=== PATIENT | male | born 1950 | race Caucasian/White ===

== ENCOUNTER 2017-08-15 22:03 | Emergency (ER) | payer MEDICARE, MEDICAID, SELFPAY ==
[2017-08-15 22:06] VITALS: BP 133/92; PULSE 113; RESP 17; TEMP 36.4; O2SAT 85; BMI 31.6
[2017-08-15] MEDS: LORazepam 2 MG/ML Syringe 1 MG IV (22:12)
--- NOTE | 2017-08-15 22:18 | NURSING ---
PATIENT CAME IN NON RESPONSIVE AND POST ICTAL. PATIENT O2 SATS IN THE 80'S. PATIENT HAD JAW CLAMPED TIGHTLY AND BLOOD NOTED FROM HIS MOUTH FROM BITING HIS LIP/TONGUE. NASAL TRUMPET WAS ORDERED BY DR. SORENSON AND WAS INSERTED BY [employer]. PATIENT IS ON A NON REBREATHER MASK AN SATS HAVE INCREASED TO 100%. HE IS CURRENTLY SNORING LOUDLY.
[2017-08-15 22:20] VITALS: BP 129/74; PULSE 100; RESP 21; O2SAT 100
--- NOTE | 2017-08-15 22:20 | CT_ITS ---
STUDY: CT BRAIN WITHOUT CONTRAST REASON FOR EXAM: Male, 66 years old. Seizure RADIATION DOSAGE (If Supplied By Facility): CTDIvol = ( 44.99 ) mGy, DLP = ( 1727.20 ) mGycm TECHNIQUE: Transaxial CT imaging of the brain was performed without administration of intravenous contrast material. Sagittal and coronal images are reformatted. Individualized dose optimization techniques were used for this CT. COMPARISON: 01/27/2014. FINDINGS: Normal soft tissue structures. Normal calvarium. There is mild cerebral atrophy with widening of the extra-axial spaces and ventricular dilatation. There are areas of decreased attenuation within the white matter tracts of the supratentorial brain, consistent with microvascular disease changes. Normal basal ganglia and thalami. Normal brainstem. Normal cerebellum. There is no intracranial hemorrhage. There are no findings of an acute ischemic infarction. Normal visualized paranasal sinuses. CT/Brain/Head without Contrast IMPRESSION: Chronic involutional changes of the brain. No acute intracranial process. Electronically Signed: Juni Farah DO at 0:04 EST , Service support ,
--- NOTE | 2017-08-15 22:20 | RAD_ITS ---
STUDY: X-RAY CHEST REASON FOR EXAM: Male, 66 years old. Seizure TECHNIQUE: Single AP portable view of the chest. COMPARISON: 03/11/2017. FINDINGS: The lung apices are obscured by the patient's chin. The lungs are clear and expanded. Chronic interstitial changes. There is no demonstrated pleural abnormality. Normal size heart. Normal mediastinum and danny. Normal visualized pulmonary arteries. Normal visualized aortic arch and descending thoracic aorta. Normal visualized thoracic spine. There is degenerative osteoarthritis of the bilateral shoulders. There is no demonstrated abnormality of the visualized soft tissue structures of the upper abdomen. RAD/Chest 1 View (Portable) IMPRESSION: Chronic interstitial changes. No infiltrate. Electronically Signed: Juni Farah DO at 23:08 EST , Service support ,
--- NOTE | 2017-08-15 22:21 | EKG12_ITS ---
Test Reason : Blood Pressure : / mmHG Vent. Rate : 105 BPM Atrial Rate : 105 BPM P-R Int : 180 ms QRS Dur : 100 ms QT Int : 338 ms P-R-T Axes : 042 021 005 degrees QTc Int : 446 ms Poor data quality, interpretation may be adversely affected Sinus tachycardia Otherwise normal ECG Confirmed by ANGE ALBRECHT, MASOOD ([id number]), assistant production editor ABIMAEL JENSEN ([id number]) on 08/18/2017 3:37:11 PM Referred By: YAS Confirmed By:MASOOD CASSIDY MD
--- NOTE | 2017-08-15 22:24 | ED.RN ---
NO OLD EKG'S IN MUSE
[2017-08-15 22:36] LABS: Bedside Glucose 185 mg/dL (70-110)
[2017-08-15] MEDS: 0.9% Normal Saline 1,000 ML 1000 ML IV (22:38)
[2017-08-15 22:44] VITALS: BP 139/87; PULSE 106; RESP 20; TEMP 36.2; O2SAT 100
[2017-08-15 22:45] LABS: Bacteria 0 SEEN /hpf (None Seen); Mucous, Urine 0 SEEN /hpf (<or=2+); White Blood Cells 0 SEEN /hpf (0-5)
[2017-08-15 22:48] LABS: Absolute Lymphocyte Count 1.51 X10^3/ul (0.83-4.51); Absolute Neutrophil Count 5.4 X10^3/uL (2.0-7.7); Basophil# 0.02 X10^3/uL; Basophil% 0.3 % (0-1); Eosinophil# 0.14 X10^3/uL; Eosinophils% 1.8 % (0-5); Hematocrit 41.1 % (40-54); Hemoglobin 13.7 g/dl (13.0-16.5); Lymphocyte # 1.51 X10^3/ul (4.0); Lymphocyte % 19.1 % (19-41); Mean Corp Hgb Conc 33.3 g/gl (32-36); Mean Corpuscular Hgb 31.1 pg (27.0-32.0); Mean Corpuscular Volume 93.2 fL (80-94); Mean Platelet Vol. 8.5 fl (6.2-12.0); Monocyte# 0.77 X10^3/uL; Monocyte% 9.8 % (0-10); Neutrophil # 5.42 X10^3/uL (2.7-7.7); Neutrophil % 68.6 % (47-70); POSITIVE COUNT NO; POSITIVE DIFFERENTIAL NO; POSITIVE MORPHOLOGY NO; Platelet Count 263 K/mm3 (150-450); RBC Distribution Width CV 11.8 % (11.6-14.6); RBC Distribution Width SD 39.9 fl (35.1-43.9); Red Blood Count 4.41 M/mm3 (4.6-6.2); White Blood Count 7.9 K/mm3 (4.4-11.0)
[2017-08-15 22:48] LABS: Color, Urine Yellow (Yellow); Glucose, Dipstick 250 mg/dl (Normal); Ketone-Dipstick Negative (Negative); Leukocyte Esterase-Dipstick Negative /ul (Negative); Nitrite-Dipstick Negative (Negative); Occult Blood-Urine 10 /ul (Negative); Protein-Dipstick 100 mg/dl (Negative); Specific Gravity, Urine 1.015 (1.002-1.030); Urine Bilirubin Dipstick Negative (Negative); Urine Clarity Sl. Cloudy (Clear); Urine Urobilinogen Normal (Normal); Urine pH 6.5 (5.0 - 8.0)
[2017-08-15 22:55] LABS: International Normalized Ratio 1.1; Prothrombin Time (Protime)PT. 13.5 SECONDS (11.7-14.9)
[2017-08-15 22:56] LABS: Partial Thromboplast Time 28.9 Seconds (24.1-36.2)
[2017-08-15 22:56] LABS: Base Excess 5 mmol/L (-2 to +2); Bicarbonate 31.4 mmol/L (22-26); Blood Gas Specimen Type ART; O2 Delivery Device NRB Mask; PO2 196 mmHG (75-100); SITE R Radial; SO2 100 % (95-99); Time Given 2242; Total Carbon Dioxide 33 mmol/L; pCO2 66.2 mmHg (35-45); pH 7.28 (7.35-7.45)
[2017-08-15 22:57] LABS: Red Blood Cells-Urine 0-5 SEEN /hpf (0-5); Squamous Epithelial Cells - UA 0-5 SEEN /hpf (0-5)
--- NOTE | 2017-08-15 22:58 | ED.DCSUM_ITS ---
- ER Visit Summary Date of Service: 08/15/17 Chief Complaint: Altered mental status after a seizure History of Present Illness: The patient is a 66 M with history of seizure disorder and deafness who presents from a custodial after a prolonged seizure without regaining of consciousness. EMS was called after patient had seized for approximately 1 hour without regaining consciousness. It was thought he had stopped seizing, but then started again with involvement of his face. EMS started an IV and gave 2.5 mg of Versed IV. Blood sugar checked by them was within normal limits. Patient medication review does show seizure medications of Vimpat and carbamazepine. No known history of trauma. No known history of recent illness. History limited secondary by patient mental status changes. Physical Examination: Vital signs: afebrile, normotensive, tachycardic, hypoxic on room air, 99% on nonrebreather. General: well nourished, well developed, obese, responsive only to noxious stimulation, eyes closed, snoring respirations, blood noted on the mouth Skin: warm, dry, no rash, no pallor HEENT: normocephalic and atraumatic; PERRL, no movement of eyes with rotation of the head laterally, moist mucous membranes jaw clenched, lip bite noted on the lower left lip Cardiovascular: Tachycardic rate and rhythm without murmurs, no peripheral edema , 2+ pulses all distal extremities Respiratory: Mild increased work of breathing improved with jaw thrust and nasal trumpet, lungs are diminished, abdominal breathing, no rales, rhonchi or wheezing appreciated Abdominal: Abdomen is soft, nontender with normoactive bowel sounds, no masses MSK: Flaccid extremities except for left clenched fist, no deformities or injuries noted Neuro: Obtunded, responsive to noxious stimuli. No facial droop, negative Babinski Test Results: Abnormal Lab Results 08/15/17 08/15/17 08/15/17 22:28 22:32 22:32 WBC 7.9 RBC 4.41 L Hgb 13.7 Hct 41.1 MCV 93.2 MCH 31.1 MCHC 33.3 RDW 11.8 RDW Differential 39.9 Plt Count 263 MPV 8.5 Immature Gran % (Auto) 0.400 Neut % (Auto) 68.6 Lymph % (Auto) 19.1 [place] % (Auto) 9.8 Eos % (Auto) 1.8 Baso % (Auto) 0.3 Absolute Neuts (auto) 5.4 Absolute Lymphs (auto) 1.51 Total Counted Not Reportable PT 13.5 INR 1.1 APTT 28.9 Specimen Type Sample Site pH Bicarbonate Actual POC Total CO2 Base Excess O2 Saturation ABG pCO2 ABG pO2 [place] Test O2 Delivery Device Liter Flow Blood Gas Notified Whom Blood Gas Notified Time Sodium Potassium Chloride Carbon Dioxide Anion Gap BUN Creatinine Estim Creat Clear Calc Est GFR (MDRD) Af Amer Est GFR (MDRD) Non-Af BUN/Creatinine Ratio Glucose Lactic Acid Calcium Total Bilirubin AST ALT Alkaline Phosphatase Troponin I Total Protein Albumin Globulin Albumin/Globulin Ratio Lipase Urine Color Urine Clarity Urine pH Ur Specific [place] Urine Protein Urine Glucose (UA) Urine Ketones Urine Occult Blood Urine Nitrite Urine Bilirubin Urine Urobilinogen Ur Leukocyte Esterase Urine RBC Urine WBC Ur Squamous Epith Cells Urine Bacteria Urine Mucus Urine Opiates Screen Urine Methadone Screen Ur Barbiturates Screen Carbamazepine Ur Phencyclidine Scrn Ur Amphetamines Screen U Methamphetamin-MDMA U Benzodiazepines Scrn Urine Cocaine Screen U Cannabinoids Screen Ur Drug Screen Comment Ethyl Alcohol POC Glucose 185 H 08/15/17 08/15/17 08/15/17 22:32 22:32 22:32 WBC RBC Hgb Hct MCV MCH MCHC RDW RDW Differential Plt Count MPV Immature Gran % (Auto) Neut % (Auto) Lymph % (Auto) [place] % (Auto) Eos % (Auto) Baso % (Auto) Absolute Neuts (auto) Absolute Lymphs (auto) Total Counted PT INR APTT Specimen Type Sample Site pH Bicarbonate Actual POC Total CO2 Base Excess O2 Saturation ABG pCO2 ABG pO2 [place] Test O2 Delivery Device Liter Flow Blood Gas Notified Whom Blood Gas Notified Time Sodium 132 L Potassium 3.4 L Chloride 94 L Carbon Dioxide 29.0 Anion Gap 9 BUN 14 Creatinine 0.70 Estim Creat Clear Calc 70.70 Est GFR (MDRD) Af Amer 143 Est GFR (MDRD) Non-Af 118 BUN/Creatinine Ratio 19.9 Glucose 206 H Lactic Acid 1.6 Calcium 7.6 L Total Bilirubin 0.20 AST 15 ALT 23 Alkaline Phosphatase 120 H Troponin I < 0.02 Total Protein 7.8 Albumin 3.8 Globulin 4.0 Albumin/Globulin Ratio 1.0 Lipase 119 Urine Color Urine Clarity Urine pH Ur Specific [place] Urine Protein Urine Glucose (UA) Urine Ketones Urine Occult Blood Urine Nitrite Urine Bilirubin Urine Urobilinogen Ur Leukocyte Esterase Urine RBC Urine WBC Ur Squamous Epith Cells Urine Bacteria Urine Mucus Urine Opiates Screen Urine Methadone Screen Ur Barbiturates Screen Carbamazepine Ur Phencyclidine Scrn Ur Amphetamines Screen U Methamphetamin-MDMA U Benzodiazepines Scrn Urine Cocaine Screen U Cannabinoids Screen Ur Drug Screen Comment Ethyl Alcohol < 3.0 POC Glucose 08/15/17 08/15/17 08/15/17 22:32 22:40 22:40 WBC RBC Hgb Hct MCV MCH MCHC RDW RDW Differential Plt Count MPV Immature Gran % (Auto) Neut % (Auto) Lymph % (Auto) [place] % (Auto) Eos % (Auto) Baso % (Auto) Absolute Neuts (auto) Absolute Lymphs (auto) Total Counted PT INR APTT Specimen Type Sample Site pH Bicarbonate Actual POC Total CO2 Base Excess O2 Saturation ABG pCO2 ABG pO2 [place] Test O2 Delivery Device Liter Flow Blood Gas Notified Whom Blood Gas Notified Time Sodium Potassium Chloride Carbon Dioxide Anion Gap BUN Creatinine Estim Creat Clear Calc Est GFR (MDRD) Af Amer Est GFR (MDRD) Non-Af BUN/Creatinine Ratio Glucose Lactic Acid Calcium Total Bilirubin AST ALT Alkaline Phosphatase Troponin I Total Protein Albumin Globulin Albumin/Globulin Ratio Lipase Urine Color Yellow Urine Clarity Sl. Cloudy Urine pH 6.5 Ur Specific [place] 1.015 Urine Protein 100 H Urine Glucose (UA) 250 H Urine Ketones Negative Urine Occult Blood 10 H Urine Nitrite Negative Urine Bilirubin Negative Urine Urobilinogen Normal Ur Leukocyte Esterase Negative Urine RBC 0-5 SEEN Urine WBC 0 SEEN Ur Squamous Epith Cells 0-5 SEEN Urine Bacteria 0 SEEN Urine Mucus 0 SEEN Urine Opiates Screen NEGATIVE Urine Methadone Screen NEGATIVE Ur Barbiturates Screen NEGATIVE Carbamazepine 11.4 Ur Phencyclidine Scrn NEGATIVE Ur Amphetamines Screen NEGATIVE U Methamphetamin-MDMA NEGATIVE U Benzodiazepines Scrn NEGATIVE Urine Cocaine Screen NEGATIVE U Cannabinoids Screen NEGATIVE Ur Drug Screen Comment Ethyl Alcohol POC Glucose 08/15/17 22:50 WBC RBC Hgb Hct MCV MCH MCHC RDW RDW Differential Plt Count MPV Immature Gran % (Auto) Neut % (Auto) Lymph % (Auto) [place] % (Auto) Eos % (Auto) Baso % (Auto) Absolute Neuts (auto) Absolute Lymphs (auto) Total Counted PT INR APTT Specimen Type ART Sample Site R Radial pH 7.28 L Bicarbonate Actual 31.4 H POC Total CO2 33 Base Excess 5 H O2 Saturation 100 H ABG pCO2 66.2 H ABG pO2 196 H Kenrick Test NA O2 Delivery Device NRB Mask Liter Flow 15.0 Blood Gas Notified Whom ED Blood Gas Notified Time 2241 Sodium Potassium Chloride Carbon Dioxide Anion Gap BUN Creatinine Estim Creat Clear Calc Est GFR (MDRD) Af Amer Est GFR (MDRD) Non-Af BUN/Creatinine Ratio Glucose Lactic Acid Calcium Total Bilirubin AST ALT Alkaline Phosphatase Troponin I Total Protein Albumin Globulin Albumin/Globulin Ratio Lipase Urine Color Urine Clarity Urine pH Ur Specific [place] Urine Protein Urine Glucose (UA) Urine Ketones Urine Occult Blood Urine Nitrite Urine Bilirubin Urine Urobilinogen Ur Leukocyte Esterase Urine RBC Urine WBC Ur Squamous Epith Cells Urine Bacteria Urine Mucus Urine Opiates Screen Urine Methadone Screen Ur Barbiturates Screen Carbamazepine Ur Phencyclidine Scrn Ur Amphetamines Screen U Methamphetamin-MDMA U Benzodiazepines Scrn Urine Cocaine Screen U Cannabinoids Screen Ur Drug Screen Comment Ethyl Alcohol POC Glucose Emergency Department Course and Treatment: Patient had snoring respirations upon arrival but was breathing spontaneously. Airway maneuvers were performed, with placement of a nasal trumpet and a jaw thrust, which resolved the snoring. Nonrebreather was placed. Patient had no change in his gaze with rotation of his head left or right, clenched jaw, and had stiffness in his left hand with occasional twitching, which was concerning for a continued seizure. Patient had received IV Versed by EMS. He was given an additional 1 mg of Ativan. Patient had improvement in his eye exam, relaxation of his left hand, and relaxation of his jaw after a period of observation following the Ativan. Patient did appear to now be post ictal and no longer having active seizure. Workup was performed to look for underlying medical cause that may have lowered his seizure threshold. Head CT showed no intracranial hemorrhage. No signs of infection on lab work or chest x-ray, electrolyte derangements, cardiac issues, UTI or other lying medical cause were identified on workup. Patient's carbamazepine was within normal limits. He had taken his medication per his healthcare worker who arrived during his workup. Patient maintained a patent airway and was slowly weaned off oxygen. He was observed for several hours and slept during this time. He was eventually completely weaned off oxygen and the nasal trumpet was removed, with patient maintaining good oxygen saturation and respiratory effort. Patient began waking up and interacting. He eventually completely woke up, was sitting on the edge of the bed, was able to interact with sign language with his healthcare worker, and asked to go home. The Mariano catheter was removed. Patient was back at his baseline and discharged home. Critical care time of 45 minutes for initial stabilization of actively seizing patient, airway control, frequent re-evaluations, discussion with healthcare worker at his custodial, interpretation of ABG, EKG, lab work and CT of the head. Treatment Plan: [] Disposition: [] Impression: Breakthrough seizure, history of epilepsy This note was generated with [employer] dictation software. It may contain incorrect words, spelling, and punctuation that were not noted in review of the chart prior to signing ED Disposition - Plan for ED Patient: Disposition: Home or Assisted Living Chief Complaint: Seizure Instructions: ED Seizure Recurrent Referrals: Michael Avalos MD [Primary Care Provider] - 3-5 Days Additional Instructions: You had a seizure tonight. There were no findings on your workup that would be concerning for an underlying medical cause, such as infection or electrolyte abnormalities, of your seizure other than your underlying epilepsy. Your carbamazepine level was normal. We were unable to check to see if your Vimpat levels were low. Because you had a breakthrough seizure while on your seizure medication, please follow-up with your doctor that manages your seizure medications to discuss if there are any changes that need to be made. If you have any worsening of your condition, please return to the emergency department immediately for another evaluation.
[2017-08-15 23:02] LABS: AST(SGOT) 15 U/L (15-37); Alanine Aminotransfer ALT/SGPT 23 U/L (16-61); Albumin, Serum 3.8 g/dL (3.2-5.0); Alkaline Phosphatase 120 U/L (45-117); Anion Gap 9 (5-15); BUN 14 mg/dL (7-18); BUN/Creat Ratio 19.9 RATIO (10-20); Calcium,Total 7.6 mg/dL (8.5-10.1); Chloride 94 mmol/L (98-107); EST Glomerular Filtration Rate 118 mL/min (>60); Est Glom Filt Rate - Afr Amer 143 mL/min (>60); Glucose 206 mg/dL (74-106); Lipase 119 U/L (73-393); Potassium 3.4 mmol/L (3.5-5.1); Protein, Total 7.8 g/dL (6.4-8.2); Sodium Level 132 mmol/L (136-145)
[2017-08-15 23:16] VITALS: BP 159/78; PULSE 100; RESP 17; TEMP 36.6; O2SAT 100
[2017-08-15 23:27] VITALS: O2SAT 97
[2017-08-15 23:49] LABS: Alcohol, Blood (Medical)-Serum < 3.0 mg/dL
[2017-08-15 23:52] LABS: Carbamazepine (Tegretol) 11.4 ug/mL (4.0-12.0)
[2017-08-16 00:06] LABS: Lactic Acid 1.6 mmol/L (0.4-2.0)
[2017-08-16 00:16] LABS: Amphetamine Urine VISTA NEGATIVE (<1000 ng/mL); Barbiturate Urine VISTA NEGATIVE (< 200 ng/mL); Benzodiazepine Urine VISTA NEGATIVE (< 200 ng/mL); Cocaine Urine VISTA NEGATIVE (< 300 ng/mL); Ecstacy Urine VISTA NEGATIVE (< 500 ng/mL); Methadone Urine VISTA NEGATIVE (< 300 ng/mL); PCP Urine VISTA NEGATIVE (< 25 ng/mL); THC Urine VISTA NEGATIVE (< 50 ng/mL); Vista UDS pH Range 6
[2017-08-16 00:52] VITALS: BP 124/70; PULSE 91; RESP 20; O2SAT 93
[2017-08-16 01:20] VITALS: BP 124/72; PULSE 87; RESP 18; TEMP 36.7; O2SAT 93
[2017-08-16 02:35] VITALS: BP 160/91; PULSE 98; RESP 29; O2SAT 94
--- NOTE | 2017-08-16 03:01 | ED.DEP ---
ED Disposition - Plan for ED Patient: Disposition: Home or Assisted Living Chief Complaint: Seizure Instructions: ED Seizure Recurrent Referrals: Michael Avalos MD [Primary Care Provider] - 3-5 Days Additional Instructions: You had a seizure tonight. There were no findings on your workup that would be concerning for an underlying medical cause, such as infection or electrolyte abnormalities, of your seizure other than your underlying epilepsy. Your carbamazepine level was normal. We were unable to check to see if your Vimpat levels were low. Because you had a breakthrough seizure while on your seizure medication, please follow-up with your doctor that manages your seizure medications to discuss if there are any changes that need to be made. If you have any worsening of your condition, please return to the emergency department immediately for another evaluation.
[2017-08-16 03:11] VITALS: BP 148/82; PULSE 101; RESP 20; TEMP 37.1; O2SAT 94
--- NOTE | 2017-08-16 03:13 | NURSING ---
PATIENT WAS ALERT AND ORIENTED TO SELF AND SIGNING TO [employer] SAL[employer] MANAGER HE WANTED TO GO HOME. DR. SORENSON MADE AWARE AND SAID OK FOR THIS NURSE TO D/C HIS CATHETER. CATHETER REMOVED. HE WAS ABLE TO STAND AND AMBULATE WITHOUT ASSISTANCE PRIOR TO DISCHARGE.
== END 2017-08-16 03:15 | disposition home or self-care (01) ==
PROVIDERS: Emergency Provider Emergency Medicine; Family Provider Family Medicine; PCP Family Medicine
DX: G40.909 Epilepsy, unspecified, not intractable, without status epilepticus (principal); H91.90 Unspecified hearing loss, unspecified ear; E66.9 Obesity, unspecified; Z79.82 Long term (current) use of aspirin; Z79.899 Other long term (current) drug therapy
CPT/HCPCS: 36600; 51702; 70450; 71045; 80053; 80156; 80307; 80320; 81001; 82803; 82962; 83605; 83690; 84484; 85025; 85610; 85730; 87040; 87086; 93005; 96361; 96374; 99285; J7030; A4216; G0480

== ENCOUNTER → 2017-10-28 08:54 | Outpatient (CLI) | payer MEDICARE, MEDICAID, SELFPAY ==
--- NOTE | 2017-10-28 09:01 | RAD_ITS ---
STUDY: X-RAY CHEST REASON FOR EXAM: Male, 66 years old. Wheezing. Cough. TECHNIQUE: PA and lateral views of the chest. COMPARISON: August 15, 2017. FINDINGS: The lungs are hypoexpanded. There are chronic interstitial changes. There is no new infiltrate or mass. There is no demonstrated pleural abnormality. The heart remains borderline enlarged. Normal mediastinum and danny. Normal visualized pulmonary arteries. There is atherosclerotic calcification of the aortic arch with tortuosity. There are diffuse degenerative changes of the visualized thoracic spine. There is degenerative osteoarthritis of the bilateral shoulders. There is no demonstrated abnormality of the visualized soft tissue structures of the upper abdomen. RAD/Chest PA and Lateral IMPRESSION: No acute cardiopulmonary disease or interval change. Electronically Signed: Charles Beltrán DO at 16:47 EDT Tel [phone], Service support ,
== END ==
PROVIDERS: Family Provider Family Medicine; PCP Family Medicine; Visit Provider Nurse Practitioner Acute Care
DX: J45.909 Unspecified asthma, uncomplicated (principal)
CPT/HCPCS: 71046

== ENCOUNTER → 2019-02-18 15:04 | Outpatient (CLI) | payer MEDICARE, MEDICAID, SELFPAY ==
[2018-10-19 07:41] VITALS: BMI 34.9
--- NOTE | 2019-02-18 15:15 | RAD_ITS ---
STUDY: X-RAY CHEST REASON FOR EXAM: Male, 68 years old. Shortness of breath, wheezing TECHNIQUE: PA and 2 lateral views of the chest. COMPARISON: 10/28/2017 FINDINGS: There are interstitial fibrotic changes of the lungs. There is no demonstrated pleural abnormality. Normal size heart. Normal mediastinum and danny. Normal visualized pulmonary arteries. Normal visualized aortic arch and descending thoracic aorta. There are diffuse degenerative changes of the visualized thoracic spine. There is degenerative osteoarthritis of the bilateral shoulders. There is no demonstrated abnormality of the visualized soft tissue structures of the upper abdomen. RAD/Chest PA and Lateral IMPRESSION: Degenerative changes, as described above. No demonstrated acute cardiopulmonary process. Electronically Signed: Yefri Grace MD at 15:35 EDT , Service support ,
[2019-02-18 16:21] LABS: Absolute Neutrophil Count 6.9 X10^3/uL (2.0-7.7); Basophil# 0.05 X10^3/uL; Basophil% 0.5 % (0-1); Eosinophils% 1.1 % (0-5); Hematocrit 38.6 % (40-54); Hemoglobin 13.2 g/dL (13.0-16.5); Lymphocyte % 12.8 % (19-41); Mean Corp Hgb Conc 34.2 g/dL (32-36); Mean Corpuscular Hgb 31.5 pg (27.0-32.0); Mean Corpuscular Volume 92.1 fL (80-94); Mean Platelet Vol. 8.7 fl (6.2-12.0); Monocyte# 1.03 X10^3/uL; NRBC Flagged by Analyzer 0 % (0-5); Neutrophil # 6.92 X10^3/uL (2.7-7.7); Neutrophil % 74.2 % (47-70); Platelet Count 282 K/mm3 (150-450); RBC Distribution Width CV 11.8 % (11.6-14.6); RBC Distribution Width SD 39.8 fl (35.1-43.9); Red Blood Count 4.19 M/mm3 (4.6-6.2); White Blood Count 9.3 K/mm3 (4.4-11.0)
[2019-02-18 16:34] LABS: AST(SGOT) 14 U/L (15-37); Alanine Aminotransfer ALT/SGPT 20 U/L (16-61); Albumin, Serum 3.7 g/dL (3.2-5.0); Alkaline Phosphatase 159 U/L (45-117); Anion Gap 9 (5-15); BUN 12 mg/dL (7-18); BUN/Creat Ratio 13.8 RATIO (10-20); Bilirubin, Direct 0.12 mg/dL (0.00-0.30); Calcium,Total 8.6 mg/dL (8.5-10.1); Chloride 96 mmol/L (98-107); Creatinine, Serum 0.87 mg/dL (0.70-1.30); EST Glomerular Filtration Rate 92 mL/min (>60); Est Glom Filt Rate - Afr Amer 111 mL/min (>60); Globulin 3.6 g/dL (2.2-4.2); Glucose 130 mg/dL (74-106); Potassium 3.7 mmol/L (3.5-5.1); Protein, Total 7.3 g/dL (6.4-8.2); Sodium Level 134 mmol/L (136-145)
[2019-02-18 17:54] LABS: Carbamazepine (Tegretol) 12.1 ug/mL (4.0-12.0)
== END ==
PROVIDERS: Family Provider Family Medicine; PCP Family Medicine; Referring Provider Nurse Practitioner Family; Visit Provider Nurse Practitioner Family
DX: R56.9 Unspecified convulsions (principal); R06.02 Shortness of breath
CPT/HCPCS: 36415; 71046; 80053; 80156; 80177; 82248; 85025

== ENCOUNTER 2020-08-27 10:06 | Emergency (ER) | payer MEDICARE, MEDICAID, SELFPAY ==
[2020-08-27 09:18] VITALS: BMI 32.3
[2020-08-27 10:07] VITALS: BP 142/90; PULSE 97; RESP 20; TEMP 36.1; O2SAT 96; BMI 36.8
--- NOTE | 2020-08-27 10:17 | RAD_ITS ---
STUDY: X-RAY CHEST REASON FOR EXAM: Male, 69 years old. COUGH, GENERAL ILLNESS TECHNIQUE: Single AP portable view of the chest. COMPARISON: 02/18/2019 FINDINGS: Cardiac monitoring leads are present. Low lung volumes are noted with mild basilar hypoventilatory changes. There is no demonstrated pleural abnormality. Normal size heart. Normal mediastinum and danny. Normal visualized pulmonary arteries. Normal visualized aortic arch and descending thoracic aorta. Normal visualized thoracic spine. There appears osteoarthritic change of the left glenohumeral joint. There is no demonstrated abnormality of the visualized soft tissue structures of the upper abdomen. RAD/Chest 1 View (Portable) IMPRESSION: Low lung volumes with mild nonspecific basilar hypoventilatory change. Electronically Signed: Nayana Townsend MD at 10:55 EST , Service support ,
--- NOTE | 2020-08-27 10:17 | CT_ITS ---
STUDY: CT BRAIN WITHOUT CONTRAST REASON FOR EXAM: Male, 69 years old. UNSTEADY GAIT, CHANGE IN MENTAL STATUS, MRDD, HTN, SZ DISORDER RADIATION DOSAGE (If Supplied By Facility): CTDIvol = ( 44.99 ) mGy, DLP = ( 863.6 ) mGycm TECHNIQUE: Transaxial CT imaging of the brain was performed without administration of intravenous contrast material. Individualized dose optimization techniques were used for this CT. COMPARISON: 01/27/[address] FINDINGS: Normal soft tissue structures. Normal calvarium. There is mild brain volume loss. 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 There are areas of decreased attenuation within the white matter tracts of the supratentorial brain, consistent with moderate microvascular disease changes. Normal basal ganglia and thalami. Normal brainstem. Normal cerebellum. There is mild prominence of the ventricles particularly the temporal horns but I believe this is secondary to the degree of volume loss in the appearance is unchanged from 2013. There is no intracranial hemorrhage. There are no findings of an acute ischemic infarction. Normal visualized paranasal sinuses. CT/Brain/Head without Contrast IMPRESSION: Chronic involutional changes of the brain. No significant interval change in the appearance of the brain when compared to 01/27/2014. Electronically Signed: Nayana Townsend MD at 11:01 EST , Service support ,
--- NOTE | 2020-08-27 10:17 | EKG12_ITS ---
Test Reason : Blood Pressure : / mmHG Vent. Rate : 101 BPM Atrial Rate : 101 BPM P-R Int : 158 ms QRS Dur : 098 ms QT Int : 340 ms P-R-T Axes : 038 029 039 degrees QTc Int : 440 ms Sinus tachycardia Otherwise normal ECG Confirmed by SINDY ALBRECHT, GRACE ([id number]), news editor DANILO FERNANDES ([id number]) on 08/31/2020 1:28:42 PM Referred By: Confirmed By:GRACE CALLAHAN MD
--- NOTE | 2020-08-27 10:33 | ED.VIS.GEN ---
History of Present Illness Chief Complaint: General Illness Informant: - - Staff from detention Limited by: - - Deaf mute with cognitive impairment. He is able to read lips. Onset: Yesterday Context: Sudden Onset Timing: Continuous Quality: Trouble with balance, complaint of headache and cough Location: Resides at detention Current Severity: - - Unable to determine Maximum Severity: - - Unable to determine Worsened by: Unable to determine Relieved by: Apparently nothing and reason he was brought to the ER for evaluation Associated Symptoms: Limited due to 2 reasons documented earlier in the record Narrative: Patient is 69-year-old male who is a deaf mute who is able to answer yes/no questions only. Based on history he complains of a global headache, has a cough and shortness of breath. Patient had trouble with balance according to detention staff. He does have history of seizure disorder. - Past Medical History (1) Deaf mutism, congenital Status: Acute (2) Asthma Status: Chronic (3) Benign hypertension Status: Chronic (4) Mental retardation Status: Chronic (5) Seizure disorder Status: Chronic Past Medical History - Allergies and Home Meds Allergies/Adverse Reactions: Allergies No Known Allergies Allergy (Verified 08/27/20 09:30) Primary Care Physician: Michael Avalos MD [Primary Care Provider] - Prior records reviewed: Yes Surgical History: noncontributory Lives: - - assisted Smoking Status: Never smoker Alcohol: None Drugs: None Review of Systems ROS: Unable to Obtain General: Denies: Fever Respiratory: Reports: Dyspnea, Cough Neurological: Reports: Headache, - - Problems with balance according to staff Physical Exam Vital Signs/Narrative: Vital Signs Temp Pulse Resp BP Pulse Ox 08/27/20 10:07 97.0 F L 97 20 H 142/90 H 96 Inital Vital Signs reviewed: Yes General: Well nourished, Well developed, Obese, No Acute Distress, - - Patient becomes agitated when he attempts to explain his symptoms. Head: Normocephalic, Atraumatic - Current trauma. Scars noted and concern for prior craniotomy. Eyes: Perrl, EOMI, - - No nystagmus. There is no subconjunctival hemorrhage.. Negative for: Pale conjunctiva, Scleral icterus ENT: No rhinorrhea, TM's clear. Negative for: Dry mucous membranes, Nasal congestion, Sinus tenderness Neck: Supple, Nontender, No lymphadenopathy, No JVD Cardiovascular: Regular rate, Regular rhythm, No murmurs, Normal S1, Normal S2 Respiratory: No distress, CTA bilaterally, Chest nontender Abdomen: Soft, Nontender, Nondistended, Normal bowel sounds, No masses Rectal: Deferred Back: Nontender Extremities: Nontender Skin: Normal color, No rash, No Trauma. Negative for: Cyanosis, Diaphoresis, Jaundice Neurological: Alert, Cranial nerves II-XII grossly intact, Normal Strength, Normal Sensation, Normal DTR - There is no clonus or Babinski sign., - - Your nose to finger was performed without abnormality noted.. Negative for: Oriented x3 - Unable to determine Psychological: Agitated Diagnostic/Tx/Re-eval Chest X-Ray - ED: 1 View, Read by ED Physician, Normal, Bony Structures, No Acute Disease, - - He is limited because it is a portable film, there is limited inspiratory volume and increased markings due to limited volume. There is no obvious infiltrate. There is no effusion. There is no pneumothorax. Impressions Brain CT 08/27/20 10:17 IMPRESSION: Chronic involutional changes of the brain. No significant interval change in the appearance of the brain when compared to 01/27/2014. Electronically Signed: Nayana Townsend MD at 11:01 EST , Service support , Chest X-Ray 08/27/20 10:17 IMPRESSION: Low lung volumes with mild nonspecific basilar hypoventilatory change. Electronically Signed: Nayana Townsend MD at 10:55 EST , Service support , 08/27/20 10:17 Brain/Head without Contrast [CT] Stat Chest 1 View (Portable) [RAD] Stat Laboratory Results 08/27/20 08/27/20 10:20 10:20 WBC 9.7 RBC 4.22 L Hgb 13.2 Hct 39.5 L MCV 93.6 MCH 31.3 MCHC 33.4 RDW Std Deviation 39.8 RDW Coeff of Marie 11.8 Plt Count 354 MPV 9.0 Immature Gran % (Auto) 0.200 Neut % (Auto) 72.0 H Lymph % (Auto) 15.5 L Cache % (Auto) 11.2 H Eos % (Auto) 0.8 Baso % (Auto) 0.3 Absolute Neuts (auto) 7.0 Absolute Lymphs (auto) 1.50 Nucleated RBC % 0 Sodium 130 L Potassium 4.3 Chloride 94 L Carbon Dioxide 28.0 Anion Gap 8 BUN 14 Creatinine 0.73 Estim Creat Clear Calc 50.12 Est GFR (MDRD) Af Amer 136 Est GFR (MDRD) Non-Af 112 BUN/Creatinine Ratio 19.1 Glucose 113 H Calcium 8.6 Total Bilirubin 0.40 AST 31 ALT 22 Alkaline Phosphatase 139 H Total Protein 7.3 Albumin 3.3 Globulin 4.0 Albumin/Globulin Ratio 0.8 L Patient has chronic hyponatremia. Patient med list indicates he is also on Tegretol. His ataxia may be due to high Tegretol level, which he has had in the past. Will order this. Tegretol level is elevated at 12.4. This may be the cause of his abnormal gait. He is presently on 400 mg in the morning 200 mg at night. Will decrease to 300 mg in the morning and leave p.m. dose unchanged - EKG Initial EKG Interpretation: Sinus Tachycardia - Sinus tachycardia with a ventricular rate 101. CT interval is 158 ms. Cures duration 98 ms. QT duration 340 ms. [place] is normal. Other than the sinus tachycardia the EKG is normal. The EKG was performed at 1031. - Medical Decision Making History of seizures and persistent neurologic exam with complaint of headache will obtain CT of the head to rule out epidural, subdural, traumatic subarachnoid hemorrhage and intraparenchymal bleed versus other etiology. Because he complains of cough in a detention will obtain Covid test, chest x-ray and appropriate blood work. Will ambulate patient determine if there is ataxia. ED Disposition - Plan for ED Patient: Disposition: Home or Assisted Living Diagnosis: Tegretol-induced dizziness, Hyponatremia Referrals: Michael Avalos MD [Primary Care Provider] - 5-7 Days Additional Instructions: Decrease Tegretol dose to 300 mg in the morning. Contact Dr. Avalos's office on Friday to have repeat Tegretol level in 5 to 7 days.
[2020-08-27 10:48] LABS: Basophil# 0.03 X10^3/uL; Basophil% 0.3 % (0-1); Eosinophil# 0.08 X10^3/uL; Eosinophils% 0.8 % (0-5); Hematocrit 39.5 % (40-54); Hemoglobin 13.2 g/dL (13.0-16.5); Lymphocyte % 15.5 % (19-41); Mean Corp Hgb Conc 33.4 g/dL (32-36); Mean Corpuscular Hgb 31.3 pg (27.0-32.0); Mean Corpuscular Volume 93.6 fL (80-94); Monocyte# 1.09 X10^3/uL; Monocyte% 11.2 % (0-10); NRBC Flagged by Analyzer 0 % (0-5); Neutrophil # 6.97 X10^3/uL (2.7-7.7); Platelet Count 354 K/mm3 (150-450); RBC Distribution Width CV 11.8 % (11.6-14.6); RBC Distribution Width SD 39.8 fl (35.1-43.9); Red Blood Count 4.22 M/mm3 (4.6-6.2); White Blood Count 9.7 K/mm3 (4.4-11.0)
[2020-08-27 11:12] LABS: ALB/GLOB Ratio 0.8 RATIO (0.9-2.4); AST(SGOT) 31 U/L (15-37); Alanine Aminotransfer ALT/SGPT 22 U/L (16-61); Albumin, Serum 3.3 g/dL (3.2-5.0); Alkaline Phosphatase 139 U/L (45-117); Anion Gap 8 (5-15); BUN 14 mg/dL (7-18); BUN/Creat Ratio 19.1 RATIO (10-20); Calcium,Total 8.6 mg/dL (8.5-10.1); Chloride 94 mmol/L (98-107); Creatinine, Serum 0.73 mg/dL (0.70-1.30); EST Glomerular Filtration Rate 112 mL/min (>60); Est Glom Filt Rate - Afr Amer 136 mL/min (>60); Estimated Creatinine Clearance 50.12 ml/min; Glucose 113 mg/dL (74-106); Potassium 4.3 mmol/L (3.5-5.1); Protein, Total 7.3 g/dL (6.4-8.2); Sodium Level 130 mmol/L (136-145)
[2020-08-27 11:59] LABS: Carbamazepine (Tegretol) 12.2 ug/mL (4.0-12.0)
[2020-08-27 13:45] VITALS: BP 156/82; PULSE 82; RESP 17; O2SAT 94
== END 2020-08-27 13:45 | disposition home or self-care (01) ==
PROVIDERS: Emergency Provider Emergency Medicine; PCP Family Medicine
DX: R42 Dizziness and giddiness (principal); T42.1X5A Adverse effect of iminostilbenes, initial encounter; Y92.9 Unspecified place or not applicable; E87.1 Hypo-osmolality and hyponatremia; Z20.822 Contact with and (suspected) exposure to COVID-19; R00.0 Tachycardia, unspecified; R51.9 Headache, unspecified; J45.909 Unspecified asthma, uncomplicated; G40.909 Epilepsy, unspecified, not intractable, without status epilepticus; I10 Essential (primary) hypertension; H91.3 Deaf nonspeaking, not elsewhere classified; F79 Unspecified intellectual disabilities; E66.9 Obesity, unspecified; Z79.82 Long term (current) use of aspirin; Z79.899 Other long term (current) drug therapy
CPT/HCPCS: 70450; 71045; 80053; 80156; 85025; 87426; 93005; 99285; A4216

== ENCOUNTER 2020-09-16 00:18 | Emergency (ER) | payer MEDICARE, MEDICAID, SELFPAY ==
[2020-09-16 00:20] VITALS: BP 168/100; PULSE 100; RESP 23; TEMP 36.6; O2SAT 96; BMI 36.7
--- NOTE | 2020-09-16 00:32 | CT_ITS ---
STUDY: CT BRAIN WITHOUT CONTRAST REASON FOR EXAM: Male, 69 years old. Injury/Pain RADIATION DOSAGE (If Supplied By Facility): CTDIvol = ( 44.99 ) mGy, DLP = ( 846.73 ) mGycm TECHNIQUE: Transaxial CT imaging of the brain was performed without administration of intravenous contrast material. Individualized dose optimization techniques were used for this CT. COMPARISON: 08/27/2020 FINDINGS: Normal soft tissue structures. Normal calvarium. Stable simple-appearing hygroma overlying the left frontal lobe region There is moderate cerebral atrophy with widening of the extra-axial spaces and ventricular dilatation. There are areas of decreased attenuation within the white matter tracts of the supratentorial brain, consistent with microvascular disease changes. Normal basal ganglia and thalami. Normal brainstem. There is mild cerebellar atrophy. There is no intracranial hemorrhage. There are no findings of an acute ischemic infarction. Normal visualized paranasal sinuses. CT/Brain/Head without Contrast IMPRESSION: Chronic involutional changes of the brain. Electronically Signed: Dae Romeo DO at 1:22 EST Tel , Service support ,
--- NOTE | 2020-09-16 00:32 | CT_ITS ---
STUDY: CT CERVICAL SPINE WITHOUT CONTRAST REASON FOR EXAM: Male, 69 years old. Injury/Pain RADIATION DOSAGE (If Supplied By Facility): CTDIvol = ( 23.54 ) mGy, DLP = ( 409.96 ) mGycm TECHNIQUE: High resolution transaxial imaging was performed without contrast material. Sagittal and coronal images were reconstructed. Individualized dose optimization techniques were used for this CT. COMPARISON: None FINDINGS: Normal craniovertebral junction. Normal anterior atlantoaxial articulation. Normal odontoid process. Normal cervical lordosis. Normal vertebral bodies and posterior osseous elements. No acute fracture or listhesis. Moderate degenerative disc disease without critical stenosis Normal visualized soft tissue structures. CT/Spine Cervical without Contras IMPRESSION: Multilevel degenerative changes, as described above. Electronically Signed: Dae Romeo DO at 1:23 EST Tel , Service support ,
[2020-09-16] MEDS: Diphth,Pertuss(Acell),Tet Vac 0.5 ML Vial IM (00:36)
--- NOTE | 2020-09-16 00:46 | ED.VIS.INJ ---
History of Present Illness Chief Complaint: Laceration Informant: - - supervisor filtration Narrative: Patient is a 69-year-old male with history of developmental delay, seizure disorder and deafness presenting after an unwitnessed fall. Patient sustained a laceration of his forehead but not clear exactly how he hit his head. It is presumed that he had a fall. Patient is unable to provide further history. Patient is at his baseline per the blending supervisor. Patient is on aspirin. Unclear when his last tetanus was. No other complaints or concerns at this time. Patient behaving normally all day. Tetanus Immunization: Unknown Past Medical History - Allergies and Home Meds Allergies/Adverse Reactions: Allergies No Known Allergies Allergy (Verified 09/16/20 00:23) Primary Care Physician: Michael Avalos MD [Primary Care Provider] - Past Medical History: - - Asthma, developmental delay, deaf, seizure disorder Surgical History: noncontributory Lives: - - long-term Smoking Status: Smoker, status unknown Review of Systems General: Denies: Chills, Fever Eyes: Denies: Visual changes - bilaterally, Diplopia ENT: Denies: Rhinorrhea, Sore throat Cardiovascular: Denies: Chest pain, Palpitations Respiratory: Denies: Dyspnea, Cough, Dyspnea on exertion Gastrointestinal: Denies: Abdominal pain, Vomiting, Diarrhea Musculoskeletal: Denies: Back pain, Swelling, Extremity Pain Skin: Reports: Abrasions - Forehead. Denies: Rash, Wounds Neurological: Denies: Headache, Weakness, Numbness Physical Exam Vital Signs/Narrative: Vital Signs Temp Pulse Resp BP Pulse Ox 09/16/20 00:20 98 F 100 23 H 168/100 H 96 Inital Vital Signs reviewed: Yes General: Well nourished, Well developed Head: Normocephalic, Atraumatic Eyes: Perrl, EOMI, - - No nystagmus ENT: TM's clear, No hemotympanum or drainage, No trauma. Negative for: Nasal trauma, Nasal septal hematoma Neck: Nontender, Full ROM Cardiovascular: Regular rate, Regular rhythm, No murmurs Respiratory: No distress, Chest nontender, - - Coarse breath sounds with transmitted upper airway noises. Negative for: Wheezing Abdomen: Soft, Nontender, Nondistended, Normal bowel sounds Back: Nontender Extremeties: Extremities are equal length. No deformity. Pelvis is stable. Patient ambulates normally. Skin: Normal color, No rash, Trauma - 1 cm partial-thickness laceration on the forehead just above the bridge of the nose. No active bleeding. Wound edges are well approximated. Neurological: Alert, Oriented x3, Cranial nerves II-XII grossly intact, Normal Strength, Normal Sensation Psychological: Normal affect - Glascow Coma Scale Eye Opening: Spontaneous Motor: Obeys Commands Verbal: Oriented Coma Scale Total: 15 Diagnostic/Tx/Re-eval Clinical Impression(s) from Imaging Studies Brain CT 09/16/20 00:32 IMPRESSION: Chronic involutional changes of the brain. Electronically Signed: Dae Romeo DO at 1:22 EST Tel , Service support , Cervical Spine CT 09/16/20 00:32 IMPRESSION: Multilevel degenerative changes, as described above. Electronically Signed: Dae Romeo DO at 1:23 EST Tel , Service support , - Medical Decision Making Evaluated for head laceration. Exact mechanism is not clear. Patient is a poor historian secondary to developmental delay. Head CT and C-spine obtained which do not show any acute intracranial process. Patient not have any other obvious signs of injury. While in the ER he does develop some mild ecchymosis of the right medial periorbital area. No focal neurologic deficits. Laceration repair performed using Dermabond. Patient tolerated procedure well. Wound edges are very well approximated. Caregiver is counseled on signs and symptoms requiring return to the emergency room. Demolition Worker verbalizes agreement and understand this plan. Patient discharged home in stable and improved condition. Laceration No standard instances Length: 0.79 in Depth: Sub Q Shape: Linear Laceration Repair: Dermabond Irrigated (ml): 100 ED Disposition - Plan for ED Patient: Disposition: Home or Assisted Living Diagnosis: Forehead laceration Instructions: ED Laceration, Face: Skin Glue Referrals: Michael Avalos MD [Primary Care Provider] -
== END 2020-09-16 02:03 | disposition home or self-care (01) ==
PROVIDERS: Emergency Provider Emergency Medicine; PCP Family Medicine
DX: S01.81XA Laceration without foreign body of other part of head, initial encounter (principal); Z23 Encounter for immunization; W19.XXXA Unspecified fall, initial encounter; Y93.9 Activity, unspecified; Y92.9 Unspecified place or not applicable; Y99.9 Unspecified external cause status; G40.909 Epilepsy, unspecified, not intractable, without status epilepticus; R62.50 Unspecified lack of expected normal physiological development in childhood; J45.909 Unspecified asthma, uncomplicated; H91.90 Unspecified hearing loss, unspecified ear; Z79.82 Long term (current) use of aspirin; Z79.899 Other long term (current) drug therapy
CPT/HCPCS: 12011; 70450; 72125; 90471; 90715; 99282

== ENCOUNTER 2021-05-04 13:08 | Emergency (ER) | payer MEDICARE, MEDICAID, SELFPAY ==
[2021-05-04 13:09] VITALS: BP 153/79; PULSE 92; RESP 24; TEMP 36.4; O2SAT 91; BMI 40.3
--- NOTE | 2021-05-04 13:39 | VDLE_ITS ---
Reason For Study: Swelling RIGHT GSV is normal. CFV is compressible, spontaneous, phasic, competent and demonstrates normal augmentation. FV is compressible, spontaneous, phasic, competent and demonstrates normal augmentation. POP V is compressible, spontaneous, phasic, competent and demonstrates normal augmentation. T/P Trunk is compressible. PTV is compressible. RT PerV is compressible. Procedure This is a venous duplex using B-mode, color flow and spectral Doppler. Exam performed portable in ED. A preliminary report was called and/or faxed to ED machine gun mechanic, Dr. Mcgowan. VL/Venous Duplex US, Unilateral Interpretation Summary There is no evidence of right lower extremity deep vein thrombosis. Right great saphenous vein appears patent and compressible segmentally. Ordering Physician: Artem Mcgowan Referring Physician: Michael Avalos Performed By: Syl Richardson, MEG, RVT
--- NOTE | 2021-05-04 15:32 | ED.VIS.LOWEX ---
HPI History of Present Illness Chief Complaint: Edema Informant: patient and mental health staff Onset/Context/Timing Onset: Today Context: - (Awoke with it) Timing: Continuous Quality of Pain: - (Sore) Location: Right lower leg Current Severity: Mild Maximum Severity: Mild Worsened by: Nothing in particular Associated Symptoms Associated Symptoms: Negative for Parasthesia, Weakness and Loss of Funtion Narrative Narrative: Patient has chronic edema in both of his legs, he is at a residential, the nurse that knows him and works with him there noticed that his right leg is more swollen than usual and erythematous and it is bothering him today, so brings in for evaluation. No recent injuries that they know of. No history of DVT or PE. Not anticoagulated for any reason, he takes aspirin 325 daily. No fevers, chills, or any other new symptoms. History is limited on this patient due to deaf mutism. He also has behavioral issues, she states that the wheezing he is doing right now is likely due to some of these, he does not like to go to doctors or hospitals and oftentimes these issues are exacerbated in those settings. [facility] Medical History (Updated 05/04/21 @ 15:[address] Artem Mcgowan MD) Asthma Benign hypertension Mental retardation Seizure disorder Home Medications amlodipine 10 mg PO DAILY 10/07/14 [History Last Taken Unknown] aspirin 325 mg PO DAILY@0800 10/07/14 [History Last Taken Unknown] lacosamide 200 mg PO BID #60 tab 10/07/14 [Rx Last Taken Unknown] biotin 1,000 mcg PO DAILY 03/11/17 [History Last Taken Unknown] carbamazepine 200 mg PO QHS 03/11/17 [History Last Taken Unknown] carbamazepine 400 mg PO BREAKFAST 03/11/17 [History Last Taken Unknown] hydrochlorothiazide 12.5 mg PO DAILY 03/11/17 [History Last Taken Unknown] levetiracetam 1 tab PO BID 08/15/17 [History Last Taken Unknown] albuterol sulfate 0.63 mg/3 mL solution for nebulization 0.63 mg INHALATION Q4H PRN ml 09/29/17 [History Last Taken Unknown] tamsulosin 0.4 mg capsule 0.4 mg PO QHS 08/27/20 [History Last Taken Unknown] levetiracetam 500 mg PO BID 09/16/20 [History Last Taken Unknown] albuterol sulfate 90 mcg/actuation aerosol inhaler 2 puff INHALATION Q4H PRN PRN #18 g 10/24/20 [Rx Last Taken Unknown] cephalexin 500 mg PO Q6 #40 capsule 05/04/21 [Rx Last Taken Unknown] Allergy/AdvReac Type Severity Reaction Status Date / Time No Known Allergies Allergy Verified 05/04/21 13:10 Social History Smoking Status: Smoker, status unknown second hand exposure: No alcohol intake: never substance use type: does not use ROS ROS ED Review of Systems ROS Unobtainable: due to mental condition Cardiovascular Cardiovascular: Reports leg edema; Denies chest pain or palpitations Musculoskeletal Musculoskeletal: Reports extremity pain Integumentary Reports as per HPI and erythema; Denies pruritus or rash EXAM Physical Exam Const Vital Signs: 05/04/21 13:09 05/04/21 13:40 Temperature 97.6 F L Temperature Source Temporal Pulse Rate 92 Respiratory Rate 24 H Respiratory Effort Normal Respiratory Pattern Normal Blood Pressure 153/79 H Blood Pressure Mean 103 Pulse Ox 91 Oxygen Delivery Method Room Air Positive well nourished, well developed and obese General Appearance ED: well developed and NAD Nutritional Appearance: obese Resp normal respiratory effort and no retractions Auscultation: wheezes; Negative for rales or rhonchi Cardio regular rate, regular rhythm and no murmurs Extremity Extremity Narrative: Edema to both lower legs to the knees, worse on the right with erythema blanching and mild tenderness all the way up to the knee. The foot is involved as well. There is no induration or abscess. There is a scaly 1 cm in diameter area at the medial aspect of the distal leg above the medial malleolus that may or may not have been a nidus for possible infection, it appears to be an old healed abrasion possibly, the patient nor the nurse know for sure. There is no discharge from it or any focal abnormalities other than the erythema that is everywhere else in the lower leg. Neuro CN's II-XII intact bilaterally, moves all extremities and no sensory deficits noted Sensorium / Orientation: alert Motor Exam: strength 5/5 throughout Skin Skin Narrative: See above. Blanching erythema mildly tender right lower leg, all compartments soft, no lymphangitis or inguinal lymphadenopathy. Lesions: no lesions Rashes: no rashes MDM MDM MDM Narrative Medical decision making narrative: Obtained a venous eval, it is negative for DVT/SVT. Therefore I think it is reasonable to empirically treat him for cellulitis. The nurse is in agreement. He clearly is doing well and not septic, so she is agreeable to an IM dose of antibiotics such as Ancef, followed by prescription for cephalexin and close outpatient follow-up. Discharge Plan Triage Chief Complaint: Edema ED Provider: Artem Mcgowan Dx/Rx/DC Orders Clinical Impression: Cellulitis of right leg Instructions: ED Cellulitis Prescriptions: New cephalexin [cephalexin] 500 MG capsule 500 mg PO Q6 Qty: 40 RF: 0 No Action albuterol sulfate 0.63 mg/3 mL solution for nebulization 0.63 mg/3 mL solution for nebulization 0.63 mg INHALATION Q4H PRN (Reason: shortness of breath or wheezing) RF: 0 albuterol sulfate 90 mcg/actuation HFA aerosol inhaler 2 puff INHALATION Q4H PRN PRN (Reason: Asthma) Qty: 18 RF: 0 tamsulosin 0.4 mg capsule 0.4 mg PO QHS RF: 0 aspirin 325 MG tablet 325 mg PO DAILY@0800 RF: 0 amlodipine 5 MG tablet 10 mg PO DAILY RF: 0 lacosamide 200 MG tablet 200 mg PO BID Qty: 60 RF: 0 hydrochlorothiazide 12.5 MG capsule 12.5 mg PO DAILY RF: 0 biotin 1,000 MCG tablet,chewable 1,000 mcg PO DAILY RF: 0 carbamazepine 200 MG tablet 400 mg PO BREAKFAST RF: 0 carbamazepine 200 MG tablet 200 mg PO QHS RF: 0 levetiracetam 500 MG tablet 1 tab PO BID RF: 0 levetiracetam 500 MG tablet 500 mg PO BID RF: 0 Primary Care Provider: Michael Avalos Referrals: Michael Avalos MD [Primary Care Provider] - 3-5 Days Disposition Disposition: Home, Self Care
[2021-05-04] MEDS: Cefazolin 1 GM/5 ML Vial IM (16:16)
== END 2021-05-04 16:34 | disposition home or self-care (01) ==
PROVIDERS: Emergency Provider Emergency Medicine; PCP Family Medicine
DX: L03.115 Cellulitis of right lower limb (principal); G40.909 Epilepsy, unspecified, not intractable, without status epilepticus; I10 Essential (primary) hypertension; J45.909 Unspecified asthma, uncomplicated; F79 Unspecified intellectual disabilities; H91.3 Deaf nonspeaking, not elsewhere classified; E66.9 Obesity, unspecified; F17.200 Nicotine dependence, unspecified, uncomplicated; Z79.82 Long term (current) use of aspirin; Z79.890 Hormone replacement therapy; Z79.899 Other long term (current) drug therapy
CPT/HCPCS: 93971; 96372; 99282

== ENCOUNTER 2021-12-14 18:23 | Emergency (ER) | payer MEDICARE, MEDICAID, SELFPAY ==
[2021-12-14 18:25] VITALS: BP 143/90; PULSE 120; RESP 18; TEMP 36.9; O2SAT 94; BMI 34.0
--- NOTE | 2021-12-14 18:46 | CT_ITS ---
STUDY: CT BRAIN WITHOUT CONTRAST REASON FOR EXAM: Male, 71 years old. HEADACHE trauma, sz TECHNIQUE: Transaxial CT imaging of the brain was performed without administration of intravenous contrast material. Individualized dose optimization techniques were used for this CT. COMPARISON: None FINDINGS: Normal calvarium. There is no underlying fracture. Soft tissue swelling of the scalp- left forehead. There is mild cerebral atrophy with widening of the extra-axial spaces and ventricular dilatation. There are areas of decreased attenuation within the white matter tracts of the supratentorial brain, consistent with microvascular disease changes. Normal basal ganglia and thalami. Normal brainstem. Normal cerebellum. There is no intracranial hemorrhage. There are no findings of an acute ischemic infarction. Normal visualized paranasal sinuses. ASPECTS 10 CT/Brain/Head without Contrast IMPRESSION: There are no acute intracranial findings. There is no underlying fracture. Soft tissue swelling of the scalp- left forehead. Electronically Signed: Vijay Barclay MD at 19:24 EDT ,
--- NOTE | 2021-12-14 18:47 | EX.ED.DYSGE1 ---
HPI History of Present Illness Chief Complaint: Seizure Narrative Narrative: Patient is generally nonverbal but he is awake and alert. History is obtained through the facility. He evidently had about a 1 minute tonic-clonic seizure. He hit his head and his hand. He came out of it and then is back to normal. He does have a history of seizure disorders. He is on Tegretol, Keppra for this. I have no report of being ill or sick recently. No report of not existing or taking his meds. He reportedly did not want to come into. However he is cooperative with me and exam points to the areas that are sore. [facility] Medical History (Updated 12/14/21 @ 20:[address] Bradly Gonzalez MD) Asthma Benign hypertension Mental retardation Seizure disorder Home Medications amlodipine 5 mg PO DAILY 10/07/14 [History Last Taken Unknown] aspirin 325 mg PO DAILY@0800 10/07/14 [History Last Taken Unknown] lacosamide 200 mg PO BID #60 tab 10/07/14 [Rx Last Taken Unknown] biotin 1,000 mcg PO DAILY 03/11/17 [History Last Taken Unknown] hydrochlorothiazide 25 mg PO DAILY 03/11/17 [History Last Taken Unknown] tamsulosin 0.4 mg capsule 0.4 mg PO QHS 08/27/20 [History Last Taken Unknown] levetiracetam 500 mg PO BID 09/16/20 [History Last Taken Unknown] Nebulizer #1 ea 05/23/21 [Rx Last Taken Unknown] budesonide 1 mg/2 mL suspension for nebulization 1 mg INHALATION BID #120 ml 10/29/21 [Rx Last Taken Unknown] Allergy/AdvReac Type Severity Reaction Status Date / Time No Known Allergies Allergy Verified 12/14/21 18:30 Social History Smoking Status: Smoker, status unknown second hand exposure: No alcohol intake: never substance use type: does not use ROS ROS ED ROS Narrative Patient is nonverbal so the review of systems is difficult. But he seems to understand when I use symbols and ask him questions. Gastrointestinal Gastrointestinal: Denies abdominal pain or vomiting Musculoskeletal Musculoskeletal: Reports other Details: Mild soreness left hand ; Denies neck pain Integumentary Reports other Details: Abrasions left Neurologic Neurologic: Reports headache(s) and other Details: He does point to the area of soreness and swelling on his forehead. EXAM Physical Exam Const Vital Signs: 12/14/21 18:25 12/14/21 19:47 Temperature 98.4 F Temperature Source Temporal Pulse Rate 120 H 106 H Respiratory Rate 18 19 H Blood Pressure 143/90 H 167/80 H Blood Pressure Mean 107 109 Pulse Ox 94 95 Oxygen Delivery Method Room Air Room Air Positive well nourished and well developed Constitutional Narrative: Patient initially closes his eyes and turns away from me when I walk in the room. But the more I talked to them he does open up his eyes and look and become more cooperative. He is actually pleasant. General Appearance ED: well developed; Negative for cyanotic or diaphoretic HEENT HEENT Narrative: Contusion on the left frontal area forehead. Eyes EOMs intact bilaterally Neck supple General: Negative for tenderness Chest Wall inspection of chest normal Resp normal respiratory effort and clear to auscultation bilaterally Cardio regular rate and regular rhythm GI normal to inspection, nondistended, normoactive bowel sounds and non-tender Palpation: soft Back/Spine no CVA tenderness Extremity Extremity Narrative: He has an abrasion to the back of his hands. These do not need suturing as they are not lacerated. There is no deformity. Neuro Sensorium / Orientation: alert Psych mental status grossly normal Skin Trauma: abrasion MDM MDM MDM Narrative Medical decision making narrative: CT of patient's head shows no acute process. Hand x-ray is negative. Dressing will be applied. Electrolytes show no marked abnormalities. His Tegretol level was essentially 0. We had this on his med list. However, we called his home and they verified that he is no longer on Tegretol but it was switched to Vimpat. He has been taking his medicines appropriately. He has not given them any trouble. With a history of recurrent seizures appropriately taking his meds and back to baseline I think he is okay to return. Lab Data Attestation: I reviewed the patient's lab results. Labs: Laboratory Results - last 24 hr 12/14/21 12/14/21 19:15 19:15 Sodium 132 L Potassium 3.6 Chloride 97 L Carbon Dioxide 26.0 Anion Gap 9 BUN 19 H Creatinine 0.96 Estim Creat Clear Calc 61.84 Est GFR (MDRD) Af Amer 99 Est GFR (MDRD) Non-Af 81 BUN/Creatinine Ratio 19.8 Glucose 145 H Calcium 8.6 Carbamazepine < 0.5 L Radiography Diagnostic Testing: Clinical Impression(s) from Imaging Studies Brain CT 12/14/21 18:46 IMPRESSION: There are no acute intracranial findings. There is no underlying fracture. Soft tissue swelling of the scalp- left forehead. Electronically Signed: Vijay Barclay MD at 19:24 EDT , Hand X-Ray 12/14/21 19:06 IMPRESSION: There are no acute findings. Electronically Signed: Vijay Barclay MD at 19:25 EDT , Discharge Plan Triage Chief Complaint: Seizure ED Provider: Bradly Gonzlaez Dx/Rx/DC Orders Clinical Impression: Seizure, Closed head injury, Abrasion of hand, left Instructions: ED Seizure, Recurrent (Adult) Prescriptions: No Action tamsulosin 0.4 mg capsule 0.4 mg PO QHS RF: 0 (DME) Nebulizer See Rx Instructions .ROUTE .MEDSUPPLY Qty: 1 RF: 0 aspirin 325 MG tablet 325 mg PO DAILY@0800 RF: 0 amlodipine 5 MG tablet 5 mg PO DAILY RF: 0 lacosamide 200 MG tablet 200 mg PO BID Qty: 60 RF: 0 hydrochlorothiazide 12.5 MG capsule 25 mg PO DAILY RF: 0 biotin 1,000 MCG tablet,chewable 1,000 mcg PO DAILY RF: 0 levetiracetam 500 MG tablet 500 mg PO BID RF: 0 budesonide 1 mg/2 mL suspension for nebulization 1 mg inhalation BID Qty: 120 RF: 6 Primary Care Provider: Michael Avalos Referrals: Michael Avalos MD [Primary Care Provider] - 1-2 Days if not improving Disposition Disposition: Home, Self Care
--- NOTE | 2021-12-14 19:06 | RAD_ITS ---
STUDY: XR Hand Min 3 Views REASON FOR EXAM: Male, 71 years old. trauma TECHNIQUE: XR Hand Min 3 Views LEFT COMPARISON: None. FINDINGS: Normal radiocarpal articulation. Normal distal radioulnar joint. Normal visualized carpal bones. Normal carpal articulations Normal carpometacarpal articulation of the thumb. Normal second through fifth carpometacarpal joints. Normal metacarpi. Normal metacarpophalangeal joint of the thumb. Normal interphalangeal joint of the thumb. Normal proximal and distal phalanges of the thumb. Normal metacarpophalangeal joints of the second through fifth fingers. Normal proximal and distal interphalangeal joints of the second through fifth fingers. Normal phalanges of the second through fifth fingers. The soft tissue structures are unremarkable. RAD/Hand Min 3 Views IMPRESSION: There are no acute findings. Electronically Signed: Vijay Barclay MD at 19:25 EDT ,
[2021-12-14 19:47] VITALS: BP 167/80; PULSE 106; RESP 19; O2SAT 95
[2021-12-14 20:04] LABS: Anion Gap 9 (5-15); BUN 19 mg/dL (7-18); BUN/Creat Ratio 19.8 RATIO (10-20); Calcium,Total 8.6 mg/dL (8.5-10.1); Chloride 97 mmol/L (98-107); Creatinine, Serum 0.96 mg/dL (0.70-1.30); EST Glomerular Filtration Rate 81 mL/min (>60); Est Glom Filt Rate - Afr Amer 99 mL/min (>60); Estimated Creatinine Clearance 61.84 ml/min; Glucose 145 mg/dL (74-106); Potassium 3.6 mmol/L (3.5-5.1); Sodium Level 132 mmol/L (136-145)
[2021-12-14 20:07] LABS: Carbamazepine (Tegretol) < 0.5 ug/mL (4.0-12.0)
[2021-12-14 20:53] VITALS: BP 155/89; PULSE 101; RESP 20; O2SAT 93
--- NOTE | 2021-12-14 20:59 | ED.RN ---
[facility] staff member Kellie picked patient up and will return him home.
== END 2021-12-14 21:00 | disposition home or self-care (01) ==
PROVIDERS: Emergency Provider Emergency Medicine; PCP Family Medicine; Visit Provider Emergency Medicine
DX: G40.909 Epilepsy, unspecified, not intractable, without status epilepticus (principal); S00.83XA Contusion of other part of head, initial encounter; S60.512A Abrasion of left hand, initial encounter; W22.09XA Striking against other stationary object, initial encounter; I10 Essential (primary) hypertension; J45.909 Unspecified asthma, uncomplicated; F79 Unspecified intellectual disabilities; Z79.82 Long term (current) use of aspirin; Z79.899 Other long term (current) drug therapy
CPT/HCPCS: 70450; 73130; 80048; 80156; 99284

== ENCOUNTER → 2023-12-22 | Outpatient (CLI) | payer MEDICARE, MEDICAID, SELFPAY ==
[2023-12-22 17:14] LABS: ALB/GLOB Ratio 0.9 RATIO (0.9-2.4); AST(SGOT) 15 U/L (15-37); Alanine Aminotransfer ALT/SGPT 17 U/L (16-61); Albumin, Serum 3.7 g/dL (3.2-5.0); Alkaline Phosphatase 149 U/L (45-117); Anion Gap 7 (5-15); BUN 21 mg/dL (7-18); BUN/Creat Ratio 21.6 RATIO (10-20); Calcium,Total 9.2 mg/dL (8.5-10.1); Chloride 100 mmol/L (98-107); Creatinine, Serum 0.97 mg/dL (0.70-1.30); EST Glomerular Filtration Rate 80 mL/min (>60); Est Glom Filt Rate - Afr Amer 97 mL/min (>60); Glucose 111 mg/dL (74-106); Protein, Total 7.7 g/dL (6.4-8.2); Sodium Level 134 mmol/L (136-145)
[2023-12-25 14:10] LABS: KEPPRA (LEVETIRACETAM) 13.4 ug/mL (10.0-40.0)
== END | disposition home or self-care (01) ==
PROVIDERS: PCP Family Medicine; Referring Provider Nurse Practitioner Family; Visit Provider Nurse Practitioner Family
DX: G40.209 Localization-related (focal) (partial) symptomatic epilepsy and epileptic syndromes with complex partial seizures, not intractable, without status epilepticus (principal)
CPT/HCPCS: 36415; 80053; 80177

== ENCOUNTER → 2024-12-09 | Outpatient (CLI) | payer MEDICARE, MEDICAID, SELFPAY | END | disposition home or self-care (01) | LOC: SL 09:20 | PROVIDERS: PCP Family Medicine; Referring Provider Nurse Practitioner Family; Visit Provider Nurse Practitioner Family | DX: R06.02 Shortness of breath (principal) | CPT/HCPCS: 94762 ==

== ENCOUNTER 2025-06-10 14:45 | Emergency (ER) | payer MEDICARE, MEDICAID, SELFPAY ==
[2025-06-10] VITALS (27 sets, daily range): BP systolic 134–174; BP diastolic 75–96; PULSE 88–103; RESP 22–28; TEMP 36.5; O2SAT 86–99; BMI 33.7
--- NOTE | 2025-06-10 14:58 | EDS_ITS ---
HPI History of Present Illness Chief Complaint: Shortness of Breath Detail of Chief Complaint: Noisy breathing, tachypnea Informant: other (Caregiver) Limited: other (Patient is deaf and apparently does not read lips) Onset/Context/Timing Onset: - (Unknown read HPI for detail) Context: - (Unknown) Timing: Continuous Quality: Expiratory stridor Location: Upper airway Current Severity: Moderate Maximum Severity: Moderate Worsened by: Unknown Relieved by: Nothing Associated Symptoms Associated Symptoms: Rapid Narrative Narrative: Patient is a 74-year-old male. He has history of hypertension, depression, BPH who was brought in by caregiver because of noisy breathing and rapid breathing. She has been out of town. She states when she returned to check on him he was breathing rapidly and had noisy breathing. He has had some mild congestion. He does have a slight cough which is nonproductive. He apparently does not have orthopnea. He has some edema of his legs. History is limited because he is deaf and he does not read lips. She is the primary informant. Prior similar symptoms: Yes (Told it was upper airway) Recent Illness/Hospitalization: No [facility] Medical History (Updated 06/10/25 @ 17:[address] Jonathan Alvarenga MD) Seizure disorder Mental retardation Benign hypertension Asthma Home Medications ?Medication ?Instructions ?Recorded ?Last Taken ?Type amlodipine 5 mg tablet 5 mg PO DAILY hypertension 0 10/07/14 Unknown History lacosamide 200 mg tablet 200 mg PO BID seizure #60 ta bs 10/07/14 Unknown Rx tamsulosin 0.4 mg capsule 0.4 mg PO QHS prostate 08/27 Unknown History levetiracetam 500 mg tablet 500 mg PO BID 09/16/20 Unk nown History Nebulizer #1 ea 05/23/21 Unknown Rx fluoxetine 20 mg capsule 20 mg PO QDAY depression Unknown History hydrochlorothiazide 25 mg tablet 25 mg PO QDAY hyperte nsion 09/10/24 Unknown History budesonide 1 mg/2 mL suspension 1 mg (2 mL) inhalation BID sob 11/09/24 Unknown Rx for nebulization #120 mL nebulizer kits #1 ea 11/09/24 Unknown Rx quetiapine 25 mg tablet (Seroquel) 25 mg PO QHS night terrors 02/11/25 Unknown History omeprazole 40 mg capsule,delayed 40 mg PO QDAY #90 cap s 05/20/25 Unknown Rx release acetaminophen 325 mg capsule 650 mg PO Q4H PRN fever o r pain 06/10/25 Unknown History albuterol sulfate 90 mcg/actuation 2 puff inhalation Q 6H PRN 06/10/25 Unknown History aerosol inhaler (Ventolin HFA) shortness of breath or wheezing aspirin 325 mg tablet,delayed 325 mg PO DAILY hyperten joyce 06/10/25 Unknown History release bacitracin 500 unit/gram topical 1 applic topical Q8H PRN minor 06/10/25 Unknown History ointment cuts/abrasions/scrapes benzocaine 15 mg-menthol 2.6 mg 1 wilfredo mucous membrane Q2H PRN sore 06/10/25 Unknown History lozenges (Cepacol Sore Throat throat (benzocaine-menthol)) biotin 1 mg capsule 1 mg PO DAILY nails 06/10/25 Unknown History bismuth subsalicylate 262 mg/15 mL 524 mg PO Q4H PRN u pset stomach 06/10/25 Unknown History oral suspension (Anti-Diarrheal) calcium carbonate (Tums) 400 mg PO Q6H PRN 06/10/25 U nknown History heartburn/indigestion loperamide 2 mg tablet 4 mg PO PRN 06/10/25 Unknown History magnesium hydroxide 400 mg/5 mL 30 ml PO DAILY PRN con stipation 06/10/25 Unknown History oral suspension (Milk of Magnesia) penicillin V potassium 500 mg 500 mg PO 4X/DAY #40 tab s 06/10/25 Unknown Rx tablet ywgodpjcoufax-TD-yjggkemasiw 2.5 30 ml PO Q4H PRN coug h 06/10/25 Unknown History mg-5 mg-50 mg/5 mL oral liquid (Robitussin Cough and Cold CF) Allergy/AdvReac Type Severity Reaction Status Date / Time No Known Allergies Allergy Verified 06/10/25 14:49 Social History Smoking Status: Never smoker second hand exposure: No alcohol intake: never substance use type: does not use ROS ROS ED Review of Systems ROS Unobtainable: other Details: Deaf and cognitively impaired Constitutional Constitutional ED: Denies chills or fever(s) ENT ENT ED: Reports rhinorrhea and other; Denies ear pain or sore throat Respiratory/Chest Respiratory/Chest: Reports cough and dyspnea Gastrointestinal Gastrointestinal: Denies abdominal pain, nausea or vomiting Genitourinary Genitourinary ED: Denies dysuria, hematuria or urinary frequency Musculoskeletal Musculoskeletal: Denies arthralgias, back pain, myalgias or neck pain Integumentary Denies abscess, Abrasions or rash Endocrine Endocrinology: Denies cold intolerance or heat intolerance Hematologic/Lymphatic Hematologic/Lymphatic: Reports systems reviewed and no addt'l complaints, except as documented Allergic/Immunologic Allergic/Immunologic ED: Denies mouth swelling or tongue swelling EXAM Physical Exam Const Vital Signs: 06/10/25 14:46 06/10/25 14:48 06/10/25 14:49 Temperature 97.7 F L 97.7 F L Temperature Source Oral Oral Pulse Rate 89 88 Respiratory Rate 28 H 24 H Respiratory Effort Short of Breath Labored Respiratory Depth Shallow Respiratory Pattern Tachypnea Blood Pressure 170/83 H 170/83 H Blood Pressure Mean 112 112 Pulse Ox 95 95 Oxygen Delivery Method Room Air Room Air Room Air 06/10/25 15:05 06/10/25 15:11 06/10/25 15:15 Temperature Temperature Source Pulse Rate 99 103 H Respiratory Rate 22 H 22 H Respiratory Effort Respiratory Depth Respiratory Pattern Tachypnea Blood Pressure 164/75 H 134/78 H Blood Pressure Mean 100 96 Pulse Ox 94 Oxygen Delivery Method 06/10/25 15:22 06/10/25 15:30 06/10/25 15:45 Temperature Temperature Source Pulse Rate Respiratory Rate Respiratory Effort Respiratory Depth Respiratory Pattern Blood Pressure 155/81 H 148/81 H Blood Pressure Mean 100 100 Pulse Ox 94 Oxygen Delivery Method 06/10/25 16:00 06/10/25 16:00 06/10/25 16:00 Temperature Temperature Source Pulse Rate Respiratory Rate Respiratory Effort Respiratory Depth Respiratory Pattern Blood Pressure 145/81 H 145/81 H 145/81 H Blood Pressure Mean 101 101 101 Pulse Ox 95 Oxygen Delivery Method 06/10/25 16:15 06/10/25 16:30 06/10/25 16:45 Temperature Temperature Source Pulse Rate Respiratory Rate Respiratory Effort Respiratory Depth Respiratory Pattern Blood Pressure 152/80 H 149/93 H 148/94 H Blood Pressure Mean 98 107 109 Pulse Ox 94 94 Oxygen Delivery Method 06/10/25 17:00 Temperature Temperature Source Pulse Rate Respiratory Rate Respiratory Effort Respiratory Depth Respiratory Pattern Blood Pressure 163/96 H Blood Pressure Mean 117 Pulse Ox 94 Oxygen Delivery Method Positive well nourished, well developed and obese Constitutional Narrative: Patient is breathing rapidly. He does have expiratory stridor that is audible. General Appearance ED: well developed; Negative for pallor Nutritional Appearance: obese HEENT Reports moist mucous membranes HEENT Narrative: Uvula is midline. There is no deviation tongue or protrusion. There is no evidence of angioedema. Ears are normal. Nares patent with slight clear drainage noted. There is no obvious postnasal drainage noted. Eyes PERRL and EOMs intact bilaterally General Eye ED: Negative for pale conjunctiva or scleral icterus Neck no lymphadenopathy, supple and no JVD Neck Narrative: Trachea is midline. Chest Wall inspection of chest normal and palpation of chest normal Resp normal respiratory effort and clear to auscultation bilaterally Effort and Inspection: Negative for retractions Auscultation: Negative for rales, rhonchi, wheezes or diminished lung sounds Cardio regular rate, regular rhythm, S1 normal heart sound, S2 normal heart sound and no murmurs GI normal to inspection, nondistended, normoactive bowel sounds, non-tender, non- distended and no masses; Negative for hepatosplenomegaly Extremity General Extremety ED: Yes edema; Negative for tenderness General Extremity: edema Neuro CN's II-XII intact bilaterally Sensorium / Orientation: alert Psych mental status grossly normal Skin no rashes or lesions noted, no wounds and skin turgor normal General Skin Exam: Negative for jaundice or pallor MDM MDM MDM Narrative Medical decision making narrative: Patient with expiratory stridor. Suspect this is due to upper airway issue p ossibly laryngitis. Since patient's history is limited we will obtain imaging and laboratory studies to assess white count, renal function, any evidence of retropharyngeal abscess, epiglottitis. X-ray of the chest was not obtained since he has no inspiratory rales or expiratory wheezing. Furthermore there is no retractions or use of accessory muscles. 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 Lab Data Attestation: I reviewed the patient's lab results. Lab results narrative: CBC reveals a mild anemia. Indices are normal. H&H is approximately 1.5 g lower than prior. Prior was obtained in August 27, 2020. Labs: Laboratory Results - last 24 hr 06/10/25 14:57 WBC 10.0 RBC 4.12 L Hgb 11.8 L Hct 37.1 L MCV 90.0 MCH 28.6 MCHC 31.8 L RDW Std Deviation 39.6 RDW Coeff of Marie 12.0 Plt Count 270 MPV 9.1 Immature Gran % (Auto) 0.600 Neut % (Auto) 69.8 Lymph % (Auto) 17.8 L [place] % (Auto) 9.1 Eos % (Auto) 2.3 Baso % (Auto) 0.4 Absolute Neuts (auto) 7.0 Absolute Lymphs (auto) 1.77 Nucleated RBC % 0 Sodium 135 Potassium 3.6 Chloride 98 Carbon Dioxide 25.2 Anion Gap 12 BUN 15 Creatinine 0.87 Estim Creat Clear Calc 77.94 Est GFR (MDRD) Non-Af 90 BUN/Creatinine Ratio 17.7 Glucose 137 H Calcium 8.5 Radiography Chest X-Ray - ED: 2 View (Soft tissue x-ray of the neck reveals no evidence of epiglottitis. Unable to determine if there is or is not a retropharyngeal abscess. Film is set optimal. Will obtain CT. 1552) Diagnostic Testing: Clinical Impression(s) from Imaging Studies Soft Tissue Neck X-Ray 06/10/25 15:20 IMPRESSION: Masslike soft tissue fullness at the level palatine tonsils. Unfortunately, the soft tissue structures of the neck are not well seen. If there is clinical concern for mass or inflammation/infection CT scan with contrast suggested. Reading Location: [id number] Soft Tissue Neck CT 06/10/25 15:52 IMPRESSION: Enlarged adenoids and palatine tonsils causing narrowing of the nasopharynx. No suspicious lesion. Reading Location: [id number] The radiology report for the soft tissue of the neck was reviewed. CAT scan was ordered. In my opinion there is no evidence of a retropharyngeal abscess. There are significant degenerative changes of the cervical vertebrae. There is no evidence of epiglottitis. There appears to be an enlarged palate teen tonsils. Treatment and Re-Evaluation :: Patient was reassessed at 1553. He no longer has stridor. He is resting comfortably. She informing that her nurse is requesting a COVID test because his neighbor was positive for COVID. Since patient does not have a cough and has essentially no rhinorrhea I informed her that I do not have an indication to test him for COVID. She was informed that the x-ray that was obtained is not ideal and that he would require a CAT scan. Comments:: CT report by radiologist reviewed. Patient has evidence of adenoid and palate teen tonsil enlargement. There is no suspicious lesions noted. Patient was treated with racemic epinephrine and Decadron. Patient's stridor resolved after the racemic epinephrine. Will treat with antibiotics and d ischarged to home Discharge Plan Triage Chief Complaint: Shortness of Breath ED Provider: Jonathan Alvarenga Dx/Rx/DC Orders Clinical Impression: Acute tonsillitis, Expiratory stridor, Deaf mutism, congenital, Cognitive impairment, Benign hypertension, Chronic obstructive pulmonary disease, unspecified, Tachycardia Instructions: Tonsillitis in Adults Prescriptions: New penicillin V potassium 500 mg tablet 500 mg PO 4X/DAY Qty: 40 0RF No Action tamsulosin 0.4 mg capsule 0.4 mg PO QHS (DME) Nebulizer See Rx Instructions .ROUTE .MEDSUPPLY Qty: 1 0RF Rx Instructions: As directed fluoxetine 20 mg capsule 20 mg PO QDAY hydrochlorothiazide 25 mg tablet 25 mg PO QDAY budesonide 1 mg/2 mL suspension for nebulization 1 mg inhalation BID Qty: 120 6RF (DME) nebulizer kits See Rx Instructions .ROUTE .MEDSUPPLY Qty: 1 11RF Rx Instructions: As directed quetiapine [Seroquel] 25 mg tablet 25 mg PO QHS omeprazole 40 mg capsule,delayed release(DR/EC) 40 mg PO QDAY Qty: 90 0RF Rx Instructions: 30 minutes before breakfast amlodipine 5 MG tablet 5 mg PO DAILY lacosamide 200 MG tablet 200 mg PO BID Qty: 60 0RF levetiracetam 500 MG tablet 500 mg PO BID aspirin 325 mg tablet,delayed release (DR/EC) 325 mg PO DAILY acetaminophen 325 mg capsule 650 mg PO Q4H PRN (Reason: fever or pain) Rx Instructions: fever above 100 or general body aches not to exceed 6 doses in 24hrs biotin 1 mg capsule 1 mg PO DAILY Cepacol Sore Throat (manoj-men) 15-2.6 mg lozenge 1 wilfredo mucous membrane Q2H PRN (Reason: sore throat) calcium carbonate [Tums] 200 mg calcium (500 mg) tablet,chewable 400 mg PO Q6H PRN (Reason: heartburn/indigestion) loperamide 2 mg tablet 4 mg PO PRN Rx Instructions: after 2 loose stools, give 2 tablets (4mg), may give 1 tablet (2mg) if loose stools continue for diarrhea with no other symptoms magnesium hydroxide [Milk of Magnesia] 400 mg/5 mL suspension 30 ml PO DAILY PRN (Reason: constipation) Rx Instructions: if no bowel movement within 3 days for constipation bacitracin 500 unit/gram ointment 1 applic topical Q8H PRN (Reason: minor cuts/abrasions/scrapes) Rx Instructions: for up to 3 days bismuth subsalicylate [Anti-Diarrheal] 262 mg/15 mL suspension 524 mg PO Q4H PRN (Reason: upset stomach) Rx Instructions: do not exceed 6 doses in a 24 hour period Robitussin Cough and Cold CF 2.5-5-50 mg/5 mL liquid 30 ml PO Q4H PRN (Reason: cough) Rx Instructions: do not exceed 6 doses in 24 hrs albuterol sulfate [Ventolin HFA] 90 mcg/actuation HFA aerosol inhaler 2 puff inhalation Q6H PRN (Reason: shortness of breath or wheezing) Rx Instructions: use with spacer Primary Care Provider: Michael Avalos Referrals: Michael Avalos MD [Primary Care Provider, Family Practice] - 3-5 Days if not improving Activity Restrictions/Additional Instructions: Have Alfredo reevaluated if there is any trouble swallowing liquids or solids, he has noisy breathing or difficulty breathing Print Language: Colombian Disposition Disposition: Home, Self Care
[2025-06-10] MEDS: Racepinephrine HCl 0.5 ML VIAL.NEB. INHALATION (15:03)
[2025-06-10 15:05] LABS: Hematocrit 37.1 % (40-54); Hemoglobin 11.8 g/dL (13.0-16.5); Immature Granulocytes Count 0.060 X10^3/uL (0.0-0.0); Mean Corp Hgb Conc 31.8 g/dL (32-36); Mean Corpuscular Volume 90.0 fL (80-94); Mean Platelet Vol. 9.1 fl (6.2-12.0); NRBC Flagged by Analyzer 0 % (0-5); Platelet Count 270 K/mm3 (150-450); RBC Distribution Width CV 12.0 % (11.6-14.6); RBC Distribution Width SD 39.6 fl (35.1-43.9); Red Blood Count 4.12 M/mm3 (4.6-6.2); White Blood Count 10.0 K/mm3 (4.4-11.0)
--- NOTE | 2025-06-10 15:20 | RAD_ITS ---
PROCEDURE: NECK FOR SOFT TISSUE 06/10/2025 REASON FOR EXAM: DYSPHONIA AND EXPIRATORY STRIDOR TECHNIQUE: Procedure Code: RADNE Modality: DX Procedure: NECK FOR SOFT TISSUE COMPARISON: September 16, 2020 FINDINGS: Image quality is degraded by body habitus and relative underpenetration. Lateral view is degraded by the patient's shoulders. There is soft tissue fullness of the level palatine tonsils. Aryepiglottic folds and epiglottis are not seen as distinct structures. Evaluation of the airways limited. Degenerative changes of the cervical spine partially imaged. RAD/Neck for Soft Tissue IMPRESSION: Masslike soft tissue fullness at the level palatine tonsils. Unfortunately, th e soft tissue structures of the neck are not well seen. If there is clinical concern for mass or inflammation/infection CT scan with contrast suggested. Reading Location: [id number]
[2025-06-10 15:23] LABS: Anion Gap 12 (5-15); BUN 15 mg/dL (4-19); BUN/Creat Ratio 17.7 RATIO (10-20); Calcium,Total 8.5 mg/dL (7.6-11.0); Carbon Dioxide 25.2 mmol/L (21.0-32.0); Chloride 98 mmol/L (98-108); Estimated Creatinine Clearance 77.94 ml/min (50-250); Glucose 137 mg/dL (70-99); Potassium 3.6 mmol/L (3.3-5.1)
--- NOTE | 2025-06-10 15:52 | CT_ITS ---
PROCEDURE: SOFT TISSUE NECK WITH CONTRAST 06/10/2025 REASON FOR EXAM: EXPIRATORY STRIDOR TECHNIQUE: Procedure Code: CTNEW Modality: CT Procedure: SOFT TISSUE NECK WITH CONTRAST CONTRAST: Isovue 370 VOLUME: 75 mL One or more dose reduction techniques were used (e.g., Automated exposure control, adjustment of the mA and/or kV according to patient size, use of iterative reconstruction technique). RADIATION DOSE SUMMARY: CTDlvol: 18.58 mGy DLP: 549.21 mGycm COMPARISON: None. FINDINGS: Airway: Enlarged adenoids and palatine tonsils causing narrowing of the nasopharynx. Salivary glands: Unremarkable. Lymph nodes: Lymphadenopathy. Thyroid: Unremarkable. Vasculature: Retropharyngeal internal carotid arteries bilaterally. Orbits: Unremarkable. Paranasal sinuses and mastoids: Clear. Lung apices: Clear. Upper mediastinum: Unremarkable. Bones: No acute bony elements. Multilevel degenerate changes of the cervical spine. CT/Soft Tissue Neck WITH Contrast IMPRESSION: Enlarged adenoids and palatine tonsils causing narrowing of the nasopharynx. N o suspicious lesion. Reading Location: [facility]
--- NOTE | 2025-06-10 18:01 | ED.RN ---
Upon discharge, this RN ambulated patient to waiting room and placed patient on pulse ox due to increased stridor upon ambulating. Patient was 88% RA, RT notified and evaluated by RT in triage. Patient taken back to room and placed on 2L by RT.
--- NOTE | 2025-06-10 19:32 | ED.RN ---
Dr. Alvarenga notified of patient's walking pulse ox on RA of 86%. Patient placed on 2L NC upon returning to room. Patient had increased stridor and labored breathing while ambulating. Dr. Alvarenga states patient is chronically low and will adjust discharge orders to reflect changes.
[2025-06-11 06:18] LABS: Allen Test Positive; Base Excess 8 mmol/L (-2 to +2); FI02 2.0; PO2 73 mmHG (75-100); SITE L Radial; SO2 95 % (94-98)
== END 2025-06-10 20:00 | disposition home or self-care (01) ==
PROVIDERS: Emergency Provider Emergency Medicine; PCP Family Medicine; Visit Provider Emergency Medicine
DX: J03.90 Acute tonsillitis, unspecified (principal); J44.9 Chronic obstructive pulmonary disease, unspecified; H91.3 Deaf nonspeaking, not elsewhere classified; I10 Essential (primary) hypertension; R00.0 Tachycardia, unspecified; R41.89 Other symptoms and signs involving cognitive functions and awareness; Z79.899 Other long term (current) drug therapy
CPT/HCPCS: 36600; 70360; 70491; 80048; 82803; 85025; 94640; 96374; 99284; Q9967; A4216